=== PATIENT | male | born 1950 | race Caucasian/White ===

== ENCOUNTER 2016-11-23 19:09 | Inpatient (IN) | payer OTHER ==
[~2016-11-23] VITALS: Ht 162.6 cm; Wt 75.5 kg
[2016-11-23 20:14] LABS: BASOPHIL % 0.1 % (0-2); PLATELET COUNT 243 x10^3mcL (130-400); RED CELL DISTRIBUTION WIDTH 16.8 % (11.5-14.5)
[2016-11-23 20:16] LABS: CALCIUM 8.2 mg/dL (8.5-10.1); CARBON DIOXIDE 29.2 mmol/L (21-32); CHLORIDE SERUM 111 mmol/L (98-107); CREATININE SERUM 1.2 mg/dL (0.7-1.3); GFR1 > 60 mL/min; GLUCOSE SERUM 97 mg/dL (74-106); POTASSIUM SERUM 3.8 mmol/L (3.5-5.1); SODIUM SERUM 146 mmol/L (136-145)
[2016-11-23 20:21] LABS: ALKALINE PHOSPHATASE 99 U/L (46-116); ALT/SGPT 36 U/L (16-63); AMYLASE 105 U/L (25-115); AST/SGOT 29 U/L (15-37); BILIRUBIN TOTAL 0.4 mg/dL (0.20-1.00); LIPASE 238 IU/L (73-393)
[2016-11-23 20:23] LABS: ALBUMIN 2.9 g/dL (3.4-5.0); TOTAL PROTEIN, SERUM 5.8 g/dL (6.4-8.2)
[2016-11-23] MEDS ORDERED: LIPITOR40 MG PO (23:30)
[2016-11-23] MEDS ORDERED: TYLENOL ARTHRI650 MG PO (23:30)
[2016-11-23] MEDS ORDERED: SYNTHROID0.075 MG PO (23:31)
[2016-11-23] MEDS ORDERED: MULTI-VITAMINS1 TAB PO (23:31)
[2016-11-23] MEDS ORDERED: COLACE100 MG PO (23:31)
[2016-11-23] MEDS ORDERED: DUCODYL5 MG PR (23:31)
[2016-11-23] MEDS ORDERED: PROTONIX40 MG PO (23:32)
[2016-11-23] MEDS ORDERED: ULTRAM50 MG PO (23:32)
[2016-11-23] MEDS ORDERED: MIRALAX17 GM/Dose PO (23:32)
[2016-11-23] MEDS ORDERED: FLEET ENEMA135 ML RC (23:32)
[2016-11-23] MEDS ORDERED: OXYCODONE HYDROC5 M2 PO (23:32)
[2016-11-24 00:26] VITALS: BP 138/77
[2016-11-24 00:38] VITALS: Ht 162.6 cm; Wt 75.5 kg
[2016-11-24 01:01] LABS: T3 TOTAL 0.94 ng/mL
[2016-11-24 01:02] LABS: CHOLESTEROL/HDL RATIO 2.6
[2016-11-24 01:10] LABS: FREE T4 1.18 ng/dL (0.76-1.46); FREE THYROXINE INDEX 2.9 ug/dL (1.4-4.5); T4(THYROXINE) 7.1 ug/dL (4.7-13.3)
[2016-11-24 05:43] VITALS: BP 117/65
[2016-11-24 07:27] LABS: BASOPHIL % 0.3 % (0-2); PLATELET COUNT 218 x10^3mcL (130-400)
[2016-11-24 07:30] LABS: CALCIUM 8.1 mg/dL (8.5-10.1); CARBON DIOXIDE 27.8 mmol/L (21-32); CHLORIDE SERUM 110 mmol/L (98-107); CREATININE SERUM 1.1 mg/dL (0.7-1.3); GFR1 > 60 mL/min; GLUCOSE SERUM 80 mg/dL (74-106); MAGNESIUM 1.7 mg/dL (1.8-2.4); POTASSIUM SERUM 3.6 mmol/L (3.5-5.1); SODIUM SERUM 142 mmol/L (136-145)
[2016-11-24 07:40] LABS: RED CELL DISTRIBUTION WIDTH 16.3 % (11.5-14.5)
[2016-11-24 10:07] VITALS: BP 130/71
[2016-11-24 13:01] VITALS: BP 112/67
[2016-11-24 17:54] VITALS: BP 124/69
[2016-11-24 21:09] VITALS: BP 129/69
[2016-11-24 21:21] LABS: UA SPECIFIC GRAVITY 1.015 (1.005-1.035); microscopic required? YES; urine erythrocyte TRACE (NEGATIVE)
[2016-11-24 21:29] LABS: AMPHETAMINE QUAL UR NONE DETECTED (NEG <=1000)
[2016-11-25 05:17] VITALS: BP 118/54
[2016-11-25 06:08] LABS: BASOPHIL % 0.3 % (0-2); PLATELET COUNT 192 x10^3mcL (130-400)
[2016-11-25 06:22] LABS: RED CELL DISTRIBUTION WIDTH 16.8 % (11.5-14.5)
[2016-11-25 06:27] LABS: ALBUMIN 2.6 g/dL (3.4-5.0); CALCIUM 7.9 mg/dL (8.5-10.1); CARBON DIOXIDE 27.8 mmol/L (21-32); CHLORIDE SERUM 108 mmol/L (98-107); CREATININE SERUM 1.2 mg/dL (0.7-1.3); GFR1 > 60 mL/min; GLUCOSE SERUM 87 mg/dL (74-106); MAGNESIUM 1.9 mg/dL (1.8-2.4); POTASSIUM SERUM 3.6 mmol/L (3.5-5.1); SODIUM SERUM 142 mmol/L (136-145)
[2016-11-25 09:35] VITALS: BP 115/61
[2016-11-25] MEDS ORDERED: DUL5 PO (15:51)
[2016-11-25] MEDS ORDERED: COUMADIN2 MG PO (15:54)
[2016-11-25 16:24] VITALS: BP 115/61
== END 2016-11-25 18:34 | disposition home or self-care (01) | DRG 388 ==
LOC: ED 19:09 → DU 23:21 → MU 23:21 → DU 11-24 00:10 → MU 11-25 06:08
PROVIDERS: Emergency Medicine; Family Medicine; ADMIT Family Medicine
DX: K56.7 Ileus, unspecified (principal); E43 Unspecified severe protein-calorie malnutrition; C78.01 Secondary malignant neoplasm of right lung; E87.0 Hyperosmolality and hypernatremia; J98.11 Atelectasis; E83.42 Hypomagnesemia; E83.51 Hypocalcemia; E03.9 Hypothyroidism, unspecified; I10 Essential (primary) hypertension; K80.20 Calculus of gallbladder without cholecystitis without obstruction; K21.9 Gastro-esophageal reflux disease without esophagitis; E78.5 Hyperlipidemia, unspecified; D64.9 Anemia, unspecified; Z90.5 Acquired absence of kidney; Z68.28 Body mass index [BMI] 28.0-28.9, adult; Z79.01 Long term (current) use of anticoagulants; Z95.828 Presence of other vascular implants and grafts; Z85.528 Personal history of other malignant neoplasm of kidney; Z86.718 Personal history of other venous thrombosis and embolism; M62.59 Muscle wasting and atrophy, not elsewhere classified, multiple sites
CPT/HCPCS: 80307; 83880; 84439; C9113; G0480; J3475; J7030; Q0092; Q9967

== ENCOUNTER → 2016-12-09 | Outpatient (CLI) | payer OTHER ==
[~2016-12-09] MED LIST: COLACE100 MG PO; COUMADIN2 MG PO; DUCODYL5 MG PR; DUL5 PO; FLEET ENEMA135 ML RC; LIPITOR40 MG PO; MIRALAX17 GM/Dose PO; MULTI-VITAMINS1 TAB PO; OXYCODONE HYDROC5 M2 PO; PROTONIX40 MG PO; SYNTHROID0.075 MG PO; TYLENOL ARTHRI650 MG PO; ULTRAM50 MG PO
== END | disposition home or self-care (01) ==
LOC: RD 11:16
PROC: BW24ZZZ Computerized Tomography (CT Scan) of Chest and Abdomen (ICD-10-PCS; principal; 2016-12-09)
DX: C78.00 Secondary malignant neoplasm of unspecified lung (principal)

== ENCOUNTER → 2017-02-04 | Outpatient (CLI) | payer OTHER, MEDICAID | END | disposition home or self-care (01) | LOC: CT 08:52 | PROC: BW24ZZZ Computerized Tomography (CT Scan) of Chest and Abdomen (ICD-10-PCS; principal; 2017-02-04) | DX: C78.00 Secondary malignant neoplasm of unspecified lung (principal) ==

== ENCOUNTER 2017-08-24 21:00 | Inpatient (IN) | payer BC, MEDICAID ==
[~2017-08-24] VITALS: Ht 162.6 cm; Wt 83.6 kg
[2017-08-24 22:31] VITALS: Ht 162.6 cm; Wt 83.6 kg
[2017-08-24 23:58] LABS: BASOPHIL % 0.3 % (0-2); PLATELET COUNT 259 x10^3mcL (130-400)
[2017-08-25 00:10] LABS: CALCIUM 8.6 mg/dL (8.5-10.1); CARBON DIOXIDE 24.7 mmol/L (21-32); CHLORIDE SERUM 107 mmol/L (98-107); CREATININE SERUM 1.1 mg/dL (0.7-1.3); GFR1 > 60 mL/min; GLUCOSE SERUM 105 mg/dL (74-106); POTASSIUM SERUM 4.2 mmol/L (3.5-5.1); SODIUM SERUM 142 mmol/L (136-145)
[2017-08-25 00:16] LABS: ALKALINE PHOSPHATASE 63 U/L (46-116); ALT/SGPT 18 U/L (16-63); AST/SGOT 21 U/L (15-37); BILIRUBIN TOTAL 0.2 mg/dL (0.20-1.00); HDL CHOLESTEROL 52 mg/dL (40-60); TOTAL PROTEIN, SERUM 6.3 g/dL (6.4-8.2)
[2017-08-25 00:17] LABS: ALBUMIN 2.8 g/dL (3.4-5.0); CHOLESTEROL 95 mg/dL (<200)
[2017-08-25 00:52] LABS: microscopic required? YES; urine erythrocyte TRACE (NEGATIVE)
[2017-08-25] MEDS ORDERED: LISINOPRIL10 MG PO (03:24)
[2017-08-25] MEDS ORDERED: APAP/HYDROCODON1 T11 PO (03:25)
[2017-08-25] MEDS ORDERED: ATORVASTATIN CA40 M1 PO (03:25)
[2017-08-25] MEDS ORDERED: NATURE'S BLEND F1 MG PO (03:26)
[2017-08-25] MEDS ORDERED: FERROUS SULFAT325 M2 PO (03:26)
[2017-08-25] MEDS ORDERED: EDLUAR5 MG SL (03:26)
[2017-08-25 03:56] LABS: T3 TOTAL 1.06 ng/mL
[2017-08-25 04:11] LABS: MAGNESIUM 1.9 mg/dL (1.8-2.4); PHOSPHOROUS 3.6 mg/dL (2.5-4.9)
[2017-08-25 04:15] LABS: CHOLESTEROL/HDL RATIO 1.9
[2017-08-25 04:21] LABS: FREE T4 1.31 ng/dL (0.76-1.46); FREE THYROXINE INDEX 3.5 ug/dL (1.4-4.5)
[2017-08-25 04:31] VITALS: BP 149/91
[2017-08-25 07:14] LABS: BASOPHIL % 0.6 % (0-2); PLATELET COUNT 238 x10^3mcL (130-400)
[2017-08-25 07:16] LABS: RED CELL DISTRIBUTION WIDTH 15.5 % (11.5-14.5)
[2017-08-25 08:06] LABS: RED BLOOD CELLS 2.98 M/mm3 (4.52-5.90)
[2017-08-25 08:48] LABS: IRON 35 ug/dL (65-170)
[2017-08-25 08:49] LABS: TOTAL IRON BINDING CAPACITY 166 ug/dL (250-450)
[2017-08-25 08:50] LABS: CARBON DIOXIDE 23.7 mmol/L (21-32); CHLORIDE SERUM 109 mmol/L (98-107); GFR1 > 60 mL/min; GLUCOSE SERUM 85 mg/dL (74-106); MAGNESIUM 1.7 mg/dL (1.8-2.4); PHOSPHOROUS 3.5 mg/dL (2.5-4.9); POTASSIUM SERUM 3.6 mmol/L (3.5-5.1); SODIUM SERUM 142 mmol/L (136-145)
[2017-08-25 10:05] VITALS: BP 142/74
[2017-08-25 13:54] VITALS: BP 114/61
[2017-08-25 16:29] VITALS: BP 134/87
[2017-08-25 21:15] VITALS: BP 114/61
[2017-08-26 05:53] VITALS: BP 113/58
[2017-08-26 07:21] LABS: CALCIUM 8.1 mg/dL (8.5-10.1); CARBON DIOXIDE 25.5 mmol/L (21-32); CHLORIDE SERUM 107 mmol/L (98-107); CREATININE SERUM 1.2 mg/dL (0.7-1.3); GFR1 > 60 mL/min; GLUCOSE SERUM 81 mg/dL (74-106); MAGNESIUM 1.8 mg/dL (1.8-2.4); POTASSIUM SERUM 3.6 mmol/L (3.5-5.1); SODIUM SERUM 143 mmol/L (136-145)
[2017-08-26 07:27] LABS: BASOPHIL % 0.4 % (0-2); PLATELET COUNT 225 x10^3mcL (130-400); RED CELL DISTRIBUTION WIDTH 15.7 % (11.5-14.5)
[2017-08-26 09:30] VITALS: BP 121/61
[2017-08-26 12:58] VITALS: BP 139/73
[2017-08-26 17:34] VITALS: BP 134/76
[2017-08-26 21:49] VITALS: BP 124/70
[2017-08-27 05:20] VITALS: BP 121/58
[2017-08-27 06:23] LABS: BASOPHIL % 0.4 % (0-2); PLATELET COUNT 236 x10^3mcL (130-400)
[2017-08-27 06:25] LABS: RED CELL DISTRIBUTION WIDTH 15.5 % (11.5-14.5)
[2017-08-27 06:33] LABS: CALCIUM 7.9 mg/dL (8.5-10.1); CARBON DIOXIDE 28.6 mmol/L (21-32); CHLORIDE SERUM 107 mmol/L (98-107); CREATININE SERUM 1.2 mg/dL (0.7-1.3); GFR1 > 60 mL/min; GLUCOSE SERUM 86 mg/dL (74-106); POTASSIUM SERUM 3.3 mmol/L (3.5-5.1); SODIUM SERUM 142 mmol/L (136-145)
[2017-08-27 09:20] VITALS: BP 129/68
[2017-08-27] MEDS ORDERED: APAP/HYDROCODON1 T11 PO (14:16)
[2017-08-27] MEDS ORDERED: XARELTO15 M1 PO (14:17)
[2017-08-27] MEDS ORDERED: AMITIZA24 MC1 PO (14:18)
[2017-08-27] MEDS ORDERED: COL100 PO (14:18)
[2017-08-27] MEDS ORDERED: PRI20 PO (14:19)
[2017-08-27 14:34] VITALS: BP 129/68
[2017-08-27] MEDS ORDERED: K10 PO (15:49)
== END 2017-08-27 18:41 | disposition home or self-care (01) | DRG 391 ==
LOC: ED 21:00 → DU 08-25 03:19
PROVIDERS: Emergency Medicine; Family Medicine
DX: K59.03 Drug induced constipation (principal); E43 Unspecified severe protein-calorie malnutrition; I82.432 Acute embolism and thrombosis of left popliteal vein; I82.442 Acute embolism and thrombosis of left tibial vein; I82.512 Chronic embolism and thrombosis of left femoral vein; T40.2X5A Adverse effect of other opioids, initial encounter; I10 Essential (primary) hypertension; D64.9 Anemia, unspecified; E03.9 Hypothyroidism, unspecified; M62.50 Muscle wasting and atrophy, not elsewhere classified, unspecified site; Z68.30 Body mass index [BMI] 30.0-30.9, adult; Z87.891 Personal history of nicotine dependence; Z87.820 Personal history of traumatic brain injury; Z86.711 Personal history of pulmonary embolism; Z79.01 Long term (current) use of anticoagulants; Z79.891 Long term (current) use of opiate analgesic; Z85.520 Personal history of malignant carcinoid tumor of kidney; Z86.718 Personal history of other venous thrombosis and embolism; Z85.118 Personal history of other malignant neoplasm of bronchus and lung; Y92.009 Unspecified place in unspecified non-institutional (private) residence as the place of occurrence of the external cause
CPT/HCPCS: 83880; 84439; J2270; J2405; J2543; J3010; J3475; J3490; J7030; Q0092; Q9967

== ENCOUNTER 2018-05-27 22:29 | Inpatient (IN) | payer BC, MEDICAID ==
[~2018-05-27] VITALS: Ht 165.1 cm; Wt 75.0 kg
[~2018-05-27 22:29] MED LIST changes: +AMITIZA24 MC1 PO; +APAP/HYDROCODON1 T11 PO; +ATORVASTATIN CA40 M1 PO; +COL100 PO; +EDLUAR5 MG SL; +FERROUS SULFAT325 M2 PO; +K10 PO; +LISINOPRIL10 MG PO; +NATURE'S BLEND F1 MG PO; +PRI20 PO; +XARELTO15 M1 PO
[2018-05-27 22:33] VITALS: Ht 165.1 cm; Wt 75.0 kg
[2018-05-27 23:36] LABS: CALCIUM 8.1 mg/dL (8.5-10.1); CREATININE SERUM 1.3 mg/dL (0.7-1.3)
[2018-05-27 23:40] LABS: BILIRUBIN TOTAL 0.2 mg/dL (0.20-1.00); TOTAL PROTEIN, SERUM 6.3 g/dL (6.4-8.2)
[2018-05-27 23:43] LABS: ALBUMIN 2.8 g/dL (3.4-5.0)
[2018-05-27] MEDS ORDERED: TOPROL XL25 MG PO (23:44)
[2018-05-27] MEDS ORDERED: LASIX40 MG PO (23:44)
[2018-05-27 23:52] LABS: BASOPHIL % 0.3 % (0-2); PLATELET COUNT 206 x10^3mcL (130-400); RED CELL DISTRIBUTION WIDTH 14.4 % (11.5-14.5)
[2018-05-28] VITALS (7 sets, daily range): BP systolic 120–155; BP diastolic 64–84
[2018-05-29 06:06] VITALS: BP 146/98
[2018-05-29 09:36] VITALS: BP 130/64
[2018-05-29 12:11] VITALS: BP 130/64
[2018-05-29 12:24] VITALS: BP 112/62
[2018-05-29 16:48] VITALS: BP 102/56
== END 2018-05-29 19:22 | disposition home or self-care (01) | DRG 844 ==
LOC: ED 22:29 → DU 05-28 01:28
PROVIDERS: Emergency Medicine
DX: C79.89 Secondary malignant neoplasm of other specified sites (principal); D68.69 Other thrombophilia; N18.4 Chronic kidney disease, stage 4 (severe); C64.2 Malignant neoplasm of left kidney, except renal pelvis; E44.0 Moderate protein-calorie malnutrition; C79.51 Secondary malignant neoplasm of bone; C78.01 Secondary malignant neoplasm of right lung; C78.02 Secondary malignant neoplasm of left lung; G55 Nerve root and plexus compressions in diseases classified elsewhere; I12.9 Hypertensive chronic kidney disease with stage 1 through stage 4 chronic kidney disease, or unspecified chronic kidney disease; R09.1 Pleurisy; M62.59 Muscle wasting and atrophy, not elsewhere classified, multiple sites; J44.9 Chronic obstructive pulmonary disease, unspecified; E03.9 Hypothyroidism, unspecified; Z68.25 Body mass index [BMI] 25.0-25.9, adult; Z95.828 Presence of other vascular implants and grafts; Z86.711 Personal history of pulmonary embolism; Z86.718 Personal history of other venous thrombosis and embolism; Z90.5 Acquired absence of kidney
CPT/HCPCS: 83880; J2270; J2405; J3490; J7620; Q0092